=== PATIENT | female | born 1975 | race Caucasian/White ===

== ENCOUNTER 2017-05-22 18:38 | Emergency (ER) | payer SELFPAY ==
[~2017-05-22] VITALS: Ht 160 cm; Wt 57.5 kg
[~2017-05-22 18:38] MED LIST: HYDR-3498 PO; IBUP-1542 PO; PUMP MISCELLANEOUS MC
[2017-05-22 18:46] VITALS: Ht 160 cm; Wt 57.5 kg
== END 2017-05-23 01:01 | disposition left against medical advice (07) ==
LOC: FTE 18:38
DX: Z53.21 Procedure and treatment not carried out due to patient leaving prior to being seen by health care provider (principal)

== ENCOUNTER 2018-07-09 18:08 | Emergency (ER) | END 2018-07-09 20:05 | disposition left against medical advice (07) ==